=== PATIENT | female | born 1995 | race Caucasian/White ===

== ENCOUNTER 2016-11-29 04:28 | Emergency (ER) | payer BC ==
[~2016-11-29] VITALS: Ht 167.6 cm; Wt 106.4 kg
[2016-11-29 04:33] VITALS: Ht 167.6 cm; Wt 106.4 kg
[2016-11-29] MEDS ORDERED: SOD CHLORIDE 0.9% 1,000 ML IV STA (07:11)
[2016-11-29] MEDS ORDERED: ACETAMINOPHEN 325 MG TAB PO STA (07:11)
--- NOTE | 2016-11-29 07:20 | ERA ---
ER Documentation Chief Complaint Date/Time DATE: 11/29/16 TIME: 07:18 Chief Complaint vag bleed w/ clots +abd cramping. 12 weeks HPI Otherwise healthy 21-year-old female who is and 12 weeks presents with a chief complaint of waking up to bloody sheets that consisted of clots. Patient states there is about 1 cup of blood in it. Similar symptoms to last a spontaneous . Reports mild pain. Nausea that has since resolved. Patient has no other complaints and describes no other associated manifestations. Nursing notes have been reviewed and are consistent with history given. ROS All systems reviewed and are negative except as per history of present illness. Medications Home Meds Active Scripts Nitrofurantoin Monohyd Macrocr* (Macrobid*) 100 Mg Capsr, 100 MG PO BID for 7 Days, CAP Prov:KAY SWANN PA-C 11/29/16 Allergies Allergies: Coded Allergies: No Known Drug Allergy (Verified Allergy, Unknown, 11/29/16) PMhx/Soc Medical and Surgical Hx: pt denies Medical Hx, pt denies Surgical Hx History of Surgery: No Anesthesia Reaction: No Hx Neurological Disorder: No Hx Respiratory Disorders: No Hx Cardiac Disorders: No Hx Psychiatric Problems: No Hx Miscellaneous Medical Probl: No Hx Alcohol Use: No Hx Substance Use: No Hx Tobacco Use: No Smoking Status: Never smoker Physical Exam Vitals Vital Signs Date Time Temp Pulse Resp B/P Pulse Ox O2 Delivery O2 Flow Rate FiO2 11/29/16 10:10 98.0 11/29/16 04:33 98.3 96 20 129/88 98 Physical Exam Const: Overweight 21-year-old female no acute distress laying in the gurney on initial presentation Head: Atraumatic Eyes: Normal Conjunctiva ENT: Normal External Ears, Nose and Mouth. Neck: Full range of motion..~ No meningismus. Resp: Clear to auscultation bilaterally Cardio: Regular rate and rhythm, no murmurs Abd: No appreciable pole. Soft, non tender, non distended. Normal bowel sounds Skin: No petechiae or rashes Back: No midline or flank tenderness Ext: No cyanosis, or edema Neur: Awake and alert Psych: Normal Mood and Affect Reproductive: Mild tenderness in the pelvic region bilaterally. Result Diagram: 11/29/16 0804 Results 24 hrs Laboratory Tests Test 11/29/16 07:26 11/29/16 08:04 Urine Color YELLOW Urine Clarity SLIGHTLY CLOUDY Urine pH 5.0 Urine Specific [place] 1.027 Urine Ketones NEGATIVEmg/dL Urine Nitrite NEGATIVEmg/dL Urine Bilirubin NEGATIVEmg/dL Urine Urobilinogen NEGATIVEmg/dL Urine Leukocyte Esterase TRACELeu/ul Urine Microscopic RBC 1/HPF Urine Microscopic WBC 5/HPF Urine Squamous Epithelial Cells FEW/HPF Urine Mucus FEW/HPF Urine Hemoglobin 2+mg/dL Urine Glucose NEGATIVEmg/dL Urine Total Protein NEGATIVEmg/dl White Blood Count 9.010^3/ul Red Blood Count 4.3010^6/ul Hemoglobin 12.1g/dl Hematocrit 36.3% Mean Corpuscular Volume 84.4fl Mean Corpuscular Hemoglobin 28.1pg Mean Corpuscular Hemoglobin Concent 33.3g/dl Red Cell Distribution Width 13.6% Platelet Count 40323^3/UL Mean Platelet Volume 9.4fl Neutrophils % 67.4% Lymphocytes % 22.6% Monocytes % 8.0% Eosinophils % 1.1% Basophils % 0.3% Nucleated Red Blood Cells % 0.0/100WBC Neutrophils # 6.110^3/ul Lymphocytes # 2.010^3/ul Monocytes # 0.710^3/ul Eosinophils # 0.110^3/ul Basophils # 0.010^3/ul Nucleated Red Blood Cells # 0.010^3/ul Beta HCG, Quantitative 40056.0mIU/ml Current Medications Medications (Trade) Dose Ordered Sig/Mony Route PRN Reason Start Time Stop Time Status Last Admin Dose Admin Sodium Chloride (NS) 1,000 ml @ 1,000 mls/hr Q1H STAT IV 11/29/16 07:11 11/29/16 08:10 DC 11/29/16 07:11 Acetaminophen (Tylenol Tab) 650 mg ONCE STAT PO 11/29/16 07:11 11/29/16 07:13 DC 11/29/16 08:10 Procedures/MDM 21-year-old female 12 weeks is being evaluated and worked up for abdominal pain and bleeding 1 day as described in the history and physical exam. My current differential diagnosis includes, but is not limited to, the following: pelvic inflammatory disease, nephrolithiasis, urinary tract infection , spontaneous , demise, and vaginitis, among others. Patient was given patient refused medication in the ED. The workup included CBC, CMP, type and screen, quantitative beta-hCG, urinalysis , urine culture, and an US. CBC unremarkable. CMP P unremarkable. Beta hCG 78 ,579.0. Urinalysis showed trace leukocyte esterase, few mucus, 2+ hemoglobin most consistent with urinary tract infection with hematuria. The US was read by the radiologist and given the following impression: Single live intrauterine with an estimated gestational age of 12 weeks 0 days, based on ultrasound measurements. ROSHAN based on ultrasound measurements is 06/13/17. At this time, I have little suspicion for complete , inevitable , ectopic , placenta previa, infection, blood vessel rupture, or PPROM. The current most likely diagnosis is urinary tract infection versus cystitis with hematuria. However, at this time I am unable to rule out threatened . I have spoke with the patient regarding their condition and future management including the necessity to follow-up with [employer] and 2 days with documentation given to her today. They have verbally responded that they understand their status and treatment plan. The patients vitals are stable , and their current condition is appropriate for discharge. The patient will be given discharge instructions with return precautions. Departure Diagnosis: Primary Impression: Vaginal bleeding in patient at less than 20 weeks gestation Condition: Stable Additional Instructions: Follow up with your PROF[employer]OR [employer] in 2 days. Be sure to take todays test results ( provided within this packet) with you to your appointment. If you do not have an [employer]OR [employer], a handout of locations with contact information will be provided to you. Follow all the recommendations we have previously discussed and the following written recommendations: If symptoms change or worsen, return to the emergency department immediately. Do not put anything in your vagina. Do not have sex, douche, or use tampons; these actions may increase your risk for infection and miscarriage. Rest as directed. Do not exercise or engage in strenuous activities; such activities may cause labor or miscarriage. If you have any further questions, ask before you leave the hospital, or contact the medical provider managing your . KAY SWANN PA-C Nov 29, 2016 07:20
[2016-11-29 07:58] LABS: ADD UMIC YES; UR ASCORBIC ACID 40 mg/dL (NEGATIVE); UR BILIRUBIN (Dip) NEGATIVE (NEGATIVE); UR BLOOD (Dip) 2+ mg/dL (NEGATIVE); UR CLARITY SLIGHTLY CLOUDY (CLEAR); UR COLOR YELLOW (YELLOW); UR GLUCOSE (Dip) NEGATIVE (NEGATIVE); UR KETONES (Dip) NEGATIVE (NEGATIVE); UR LEUKOCYTE ESTERASE (Dip) TRACE Leu/ul (NEGATIVE); UR MUCUS FEW /HPF (NONE SEEN); UR NITRITE (Dip) NEGATIVE (NEGATIVE); UR RBC 1 /HPF (0-5); UR SPECIFIC GRAVITY (Dip) 1.027 (1.003-1.030); UR SQUAMOUS EPITHELIAL CELL FEW /HPF (FEW); UR TOTAL PROTEIN (Dip) NEGATIVE (NEGATIVE); UR UROBILINOGEN (Dip) NEGATIVE (NEGATIVE)
[2016-11-29 08:20] LABS: BASOPHILS % 0.3 % (0.0-2.0); EOSINOPHILS # 0.1 10^3/ul (0.0-0.5); EOSINOPHILS % 1.1 % (0.0-7.0); HEMATOCRIT 36.3 % (37.0-47.0); HEMOGLOBIN 12.1 g/dl (12.0-16.0); LYMPHOCYTES % 22.6 % (15.0-51.0); MEAN CORPUSCULAR HEMOGLOBIN 28.1 pg (29.0-33.0); MEAN CORPUSCULAR HGB CONC 33.3 g/dl (32.0-37.0); MEAN CORPUSCULAR VOLUME 84.4 fl (82.0-101.0); MEAN PLATELET VOLUME 9.4 fl (7.4-10.4); MONOCYTE # 0.7 10^3/ul (0.3-0.9); NEUTROPHIL # 6.1 10^3/ul (1.6-7.5); NEUTROPHILS % 67.4 % (39.0-77.0); PLATELET COUNT 349 10^3/UL (140-415); RED CELL DISTRIBUTION WIDTH 13.6 % (11.5-14.5)
--- NOTE | 2016-11-29 08:21 | RADRPT ---
PROCEDURE: US OB. CLINICAL INDICATION: Vaginal bleeding TECHNIQUE: Transabdominal views of the pelvis are available for review. COMPARISON: No prior studies are available for comparison. FINDINGS: There is a single intrauterine gestation with the crown-rump length measuring 5.4 cm, corresponding to a gestational age of 12 weeks and 0 days. The heart rate is noted at 158 bpm. The ovaries are not visualized. There is no free fluid. RPTAT: AA IMPRESSION: Single live intrauterine with an estimated gestational age of 12 weeks and 0 days, based o n ultrasound measurements. ROSHAN based on ultrasound measurements is 06/13/17. .Antonio Jones MD, MD Date Time Electronically viewed and signed by .Antonio Jones MD, on 11/29/2016 08:21 .S/
[2016-11-29] MEDS ORDERED: NITR-58 PO (09:52)
[2016-11-29 10:10] VITALS: TEMP 98
== END 2016-11-29 10:11 | disposition home or self-care (01) ==
LOC: FTE 04:28
DX: O20.9 Hemorrhage in early pregnancy, unspecified (principal); R10.2 Pelvic and perineal pain; Z3A.12 12 weeks gestation of pregnancy
CPT/HCPCS: 36415; 76801; 81001; 84702; 85025; 86900; 86901; 99285; J7030

== ENCOUNTER 2017-03-18 05:01 | Inpatient (IN) | END 2017-03-22 19:07 | disposition home or self-care (01) | DRG 780 ==

== ENCOUNTER 2017-06-04 18:00 | Inpatient (IN) | END 2017-06-08 12:25 | disposition home or self-care (01) | DRG 766 ==